=== PATIENT | female | born 1985 | race Caucasian/White ===

== ENCOUNTER 2021-10-13 22:57 | Emergency (ER) | payer OTHER ==
--- OUTSIDE RECORDS SUMMARY | 2021-10-13 23:00 | XMS REPORT | Continuity of Care Document ---
:1985 Author Organization [facility] t Address [address] [place] [address] Dr. Alba [address] [place] [id number] Care Team Providers Name Role Phone LILIA Primary Care Physician Unavailable Problems This patient has no known problems. Allergies, Adverse Reactions, Alerts This patient has no known allergies or adverse reactions. Medications This patient has no known medications. Procedures This patient has no known procedures. Encounters Start End Encounter Admission Attending Care Care Encounter Source Date/Time Date/Time Type Type Clinicians Facility Department ID 2016-09-15 2016-09-15 Emergency E [facility] [id number] Medical 01:21:00 01:21:00 [facility] Results Test Description Test Time Test Comments Results Result Comments Source VALPROIC ACID 2021-07-25 04:47:48 Test Item Value Reference Range Interpretation Comme nts VALPROIC ACID (test code = 95.0 UG/ML 50.0-125.0 3025) REFERENCE RANGE S EPILEPSY . . . . . . . . . . . . . .UG/ML 50.0-100.0 ASHWIN. . . . . . . . . . . . . . . .UG/ML 50.0-125.0 POSSIBLE TOXICI TY. . . . . . . . . .UG/ML >125.0 UNLESS OTHERWIS E INDICATED, ALL TESTING PERFORM ED ATCLINICAL PATHOLOGY [email or web address] [address] [place] [address] LABORATOR Y DIRECTOR: Balbina LAUGHLIN CLIA NUMBER [id number] CAP ACCREDITATION N O. [id number] THORACIC SPINE [id number] 10:37:[address] [id number] IMAGING REPORTPatient Name: Cinthia WAHL of Service: [id number]: 33 Sex: F Order #: [id number] Room: ERSDOB: 1985 X-Ray Number: [id number] Record Number: [id number] Hospital Number: [id number] Physician: Ronaldo DICKINSON Physician: ALEXANDRO DICKINSONThoracic spine 3 views.This patient presents with back pain, having fallen down an escalator.There are no fractures or areas of bone destruction or acute findings.There are no degenerative changes.The paravertebral soft tissuesare normal.IMPRESSIONNormal thoracic spine.Electronically Signed By: Aj Burleson M.D., 11/18/2018 10:35 AMLegally authenticated by SULTANA STORY 2018-11-18 10:35:31SPINE LUMBAR SACR 2018-11-18 10:36:00[place] [id number] IMAGING REPORTPatient Name: Cinthia WAHL of Service: [id number]: 33 Sex: F Order #: [id number] Room: ERSDOB: 1985 X-Ray Number: [id number] Record Number: [id number] Hospital Number: [id number] Physician: Ronaldo DICKINSON Physician: ALEXANDRO DICKINSONLumbar spine 6 views.Thispatient presents with a backache, having fallen down escalator 3 daysearlier.There is minimal right t horacolumbar scoliosis.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 There are no degenerativechanges. The paravertebral soft tissues are normal.Impression:There is minimal right thoracolumbar scoliosis. 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 She presents with neckpain.There are no fractures or areas of bone destruction or acute findings.There are no degenerative changes.The paravertebral soft tissues are normal.IMPRESSIONNormal cervical spine.Electronically Signed By: Aj Burleson M.D., 11/18/2018 10:30 AMLegally authenticated by SULTANA STORY 2018-11-18 10:30:47CHEST 1 VIEW [id number] 10:33:00[place] [id number] IMAGING REPORTPatient Name: Cinthia WAHL of Service: [id number]: 33 Sex: F Order #: [id number] Room: ERSDOB: 1985 X-Ray Number: [id number] Record Number: [id number] Hospital Number: [id number] Physician: Ronaldo DICKINSON Physician: PHANI DICKINSON chest radiograph.This patient presents following trauma, having fallen down escalator 3 daysearlier.The heart and pulmonary vasculature are normal, and the lungs are clear.There is no evidence of a pulmonary contusion or pneumothorax. There is nowidening of the mediastinum.No definite rib fractures are demonstrated.IMPRESSIONNormal chestElectronically Signed By: Aj Burleson M.D., 11/18/2018 10:31 AMLegally authenticated by SULTANA STORY 2018-11-18 10:31:32CT HEAD W/O [id number] 09:38:00[place] [id number] IMAGING REPORTPatient Name: Cinthia WAHL of Service: [id number]: 33 Sex: F Order #: [id number] Room: ERSDOB: 1985 X-Ray Number: [id number] Record Number: [id number] Hospital Number: [id number] Physician: ALEXANDRO DICKINSONOrdering Physician: KALIA DICKINSON HEAD:HISTORY: Injury multiple days ago.TECHNIQUE: Unenhanced CT axial images of the brain with sagittal andcoronal reformatted images.This CT exam was performed using one or more of the following dosereduction techniques: Automated exposure control, adjustment of the MAand/or KV according to patient size or use of iterativereconstructiontechnique.FINDINGS: CT head images demonstrate no acute appearing intracranialabnormalities. The ventricles are symmetric and midline. The villanueva-whitematter differentiation is intact. The calvarium appears intact.IMPRESSION:No acute appearing intracranial abnormalities.Electronically Signed By: Bright Mann M.D., 11/18/2018 9:36 AMLegally authenticated by RUSLAN Cutler [id number]:14ISTAT [id number] 09:00:00 Test Item Value Reference Range Interpretation Comments ISTAT HCG (test <5.0 IU/L A value of l ess than or code = ISHCG) equal to <5 IU /L is considered NEGA TIVE A value between 5 IU/L and 25 IU/L is cons idered INDETERMINATE A value of >25 IU/L is con sidered POSITIVE 42089& PELVIS W/O [id number] 06:24:30CT ABD & PELVIS W/O CONTRASTHISTORY: Lower abdominal pain, dizziness, nauseaCOMPARISON: None avai lableTECHNIQUE: Helical noncontrast tomographic imaging obtained through theabdomen and pelvis. Radiation dose lowering techniques were used withautomated exposure control, adjusting the mA according to patient'ssize.FINDINGS: Small nonobstructing left nephrolithiasis noted. Noobstructing radiopaque urolithiasis or secondary sequela.Cholecystectomy clips noted. Liver, pancreas, spleen, and adrenal glandsunremarkable. No evidence of bowel obstruction. Visualized appendixunremarkable. No pericecal inflammatory changes. Mild colonic fecalretention noted. 4.5 cm right adnexal cyst present. No left adnexalcyst. Urinary bladder and uterus unremarkable. Small free fluid present.No free air. Dysraphic changes of the lumbosacral spine noted.IMPRESSION: 1. 4.5 cm right adnexal cyst, indeterminate. Consider correlation withpelvic ultrasound if clinically indicated.2. Small free fluid.3. Visualized appendixunremarkable.4. Small nonobstructing left nephrolithiasis.Preliminary report faxed to the emergency room on the date of 09/15/2016at [address] Donte Becker.
--- NOTE | 2021-10-13 23:37 | EDPHYS ---
Physician Documentation [facility] Name: Britney Faria Age: 35 yrs Sex: Female : 1985 Arrival Date: 10/13/2021 Time: 23:00 Bed Waiting Private MD: ED Physician Samuel Uriarte HPI: 10/13 23:33 This 35 yrs old Female presents to ER via Unassigned with complaints of Foot Injury, jmm Foot Pain. 23:33 The patient presents with an injury, pain. Onset: The symptoms/episode began/occurred jmm acutely. Modifying factors: The symptoms are alleviated by nothing. the symptoms are aggravated by nothing. 23:34 This is a 35 year old female with no chronic medical conditions that presents to the ED jmm with complaints of left foot pain after twisting her ankle 2 dayy ago. Patient has not received xray results. . 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 - Social history:: Smoking status: Patient reports the use of cigarette tobacco products. ROS: 23:34 Constitutional: Negative for fever, chills, and weight loss, Cardiovascular: Negative jmm for chest pain, palpitations, and edema, Respiratory: Negative for shortness of breath, cough, wheezing, and pleuritic chest pain. 23:34 MS/extremity: Positive for injury or acute deformity. 23:34 All other systems are negative. Exam: 23:34 Constitutional: This is a well developed, well nourished patient who is awake, alert, jmm and in no acute distress. Head/Face: atraumatic. Eyes: EOMI, no conjunctival erythema appreciated ENT: Moist Mucus Membranes Neck: Trachea midline, Supple Chest/axilla: Normal chest wall appearance and motion. Cardiovascular: Regular rate and rhythm. No edema appreciated Respiratory: Normal respirations, no respiratory distress appreciated Abdomen/GI: Non distended, soft Back: Normal ROM Skin: General appearance color normal 23:34 Musculoskeletal/extremity: left ankle ttp, lateral foot ttp, compartments are soft, full dorsalis pulse, NVI. 23:34 Skin: Appearance: Color: normal in color. 23:34 Neuro: Orientation: is normal, Mentation: is normal, Memory: is normal. 23:34 Psych: Behavior/mood is pleasant, cooperative. Vital Signs: 23:26 BP 114 / 77; Pulse 86; Resp 16 S; Temp 98; Pulse Ox 98% on R/A; Weight 62.14 kg (R); bb Height 5 ft. 5 in. (165.10 cm) (R); Pain 7/10; 23:26 Body Mass Index 22.80 (62.14 kg, 165.10 cm) bb MDM: 23:17 Patient medically screened. [facility] 23:37 Data reviewed: vital signs, nurses notes. Counseling: I had a detailed discussion with [facility] the patient and/or guardian regarding: the historical points, exam findings, and any diagnostic results supporting the discharge/admit diagnosis, radiology results, the need for outpatient follow up, to return to the emergency department if symptoms worsen or persist or if there are any questions or concerns that arise at home. 10/13 23:19 Order name: Crutches; Complete Time: 23:35 [facility] 10/13 23:19 Order name: Ziggy wrap-joint; Complete Time: 23:35 [facility] Administered Medications: No medications were administered Disposition: 10/14 05:50 Co-signature as Attending Physician, Samuel Uriarte DO I was immediately available on-site ms3 in the Emergency Department for consultation in the care of the patient.. Disposition Summary: 10/13/21 23:37 Discharge Ordered Location: Home [facility] Condition: Stable [facility] Diagnosis - Other sprain of left foot [facility] Followup: [facility] - With: Jeses Stafford DPM - When: 2 - 3 days - Reason: Recheck today's complaints, Continuance of care, Re-evaluation by your physician Discharge Instructions: - Discharge Summary Sheet [facility] - Foot Sprain [facility] Forms: - Medication Reconciliation Form [facility] - Thank You Letter [facility] - Antibiotic Education [facility] - Prescription Opioid Use [facility] Prescriptions: - Diclofenac Sodium 75 mg Oral Tablet Sustained Release - take 1 tablet by ORAL route 2 times per day; 30 tablet; Refills: 0, Product [facility] Selection Permitted - orphenadrine citrate 100 mg Oral Tablet Sustained Release - take 1 tablet by ORAL route 2 times per day As needed; 20 tablet; Refills: 0, [facility] Product Selection Permitted Signatures: Mickail, Ferny, PA Suzette Mares, RN RN bb Uriarte, Samuel, DO DO ms3
--- NOTE | 2021-10-13 23:37 | ER ---
Nurse's Notes [facility] Name: Britney Faria Age: 35 yrs Sex: Female : 1985 Arrival Date: 10/13/2021 Time: 23:00 Bed Waiting [facility] MD: Diagnosis: Other sprain of left foot Presentation: 10/13 23:26 Chief complaint: Patient states: she rolled her left ankle about 2 weeks ago and it is bb still swollen and painful. Coronavirus screen: At this time, the client does not indicate any symptoms associated with coronavirus-19. Ebola Screen: No symptoms or risks identified at this time. Initial Sepsis Screen: Does the patient meet any 2 criteria? No. Patient's initial sepsis screen is negative. Does the patient have a suspected source of infection? No. Patient's initial sepsis screen is negative. Risk Assessment: Do you want to hurt yourself or someone else? Patient reports no desire to harm self or others. Onset of symptoms was October 13, 2021. 23:26 Method Of Arrival: Ambulatory bb 23:26 Acuity: MAIDA 4 bb Triage Assessment: 23:33 General: Appears in no apparent distress. Behavior is calm, cooperative. Pain: bb Complains of pain in left ankle Pain currently is 7 out of 10 on a pain scale. Neuro: Level of Consciousness is awake, alert, obeys commands, Oriented to person, place, time, situation. Cardiovascular: Capillary refill < 3 seconds Patient's skin is warm and dry. Respiratory: Respiratory effort is even, unlabored, Respiratory pattern is regular. GI: No signs and/or symptoms were reported involving the gastrointestinal system. Derm: Skin is pink, warm \T\ dry. Musculoskeletal: Swelling present in left ankle Reports pain in left ankle. Injury Description: rolled left ankle. 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 - Social history:: Smoking status: Patient reports the use of cigarette tobacco products. Assessment: 23:51 Reassessment: pt instructed on crutch use demonstrated good technique pt verbalized bb understanding of and agrees to plan of care discharge instructions given pt accompanied to exit by friend. Vital Signs: 23:26 BP 114 / 77; Pulse 86; Resp 16 S; Temp 98; Pulse Ox 98% on R/A; Weight 62.14 kg (R); bb Height 5 ft. 5 in. (165.10 cm) (R); Pain 7/10; 23:26 Body Mass Index 22.80 (62.14 kg, 165.10 cm) valentín ED Course: 23:00 Patient arrived in ED. shaji 23:10 Ferny Garcia PA [facility] julius 23:10 Samuel Uriarte DO is Attending Physician. julius 23:33 Triage completed. bb 23:33 Arm band placed on pt discharged from triage. bb 23:37 Jesse Stafford DPM is Referral Physician. [facility] 23:52 No provider procedures requiring assistance completed. Patient did not have IV access bb during this emergency room visit. Administered Medications: No medications were administered Outcome: 23:37 Discharge ordered by . julius 23:52 Discharged to home with crutches, with friend. bb 23:52 Condition: stable 23:52 Discharge instructions given to patient, Instructed on discharge instructions, follow up and referral plans. no driving heavy equipment, crutch walking, Demonstrated understanding of instructions, follow-up care, medications, crutch walking, Prescriptions given X 2. 23:52 Patient left the ED. bb Signatures: Ferny Garcia PA PA jmm Ballard, Brenda, RN RN Dina Neff
[2021-10-14 00:24] VITALS: BP 114/77; TEMP 98; O2SAT 98
== END 2021-10-13 23:52 | disposition home or self-care (01) ==
LOC: ER 22:57
DX: S93.692A Other sprain of left foot, initial encounter (principal); Z72.0 Tobacco use
CPT/HCPCS: 99283